=== PATIENT | female | born 1985 | race Caucasian/White ===

== ENCOUNTER 2020-05-18 14:56 | Outpatient (CLI) | payer OTHER ==
[2020-05-18] MEDS ORDERED: OMEGA-31000 MG PO (15:40)
[2020-05-18] MEDS ORDERED: FOLIC ACID20 MG PO (15:41)
== END 2020-05-18 16:38 | disposition home or self-care (01) ==
LOC: OBS/DEL 14:56
PROVIDERS: ATTEND Obstetrics & Gynecology Maternal & Fetal Medicine
DX: O46.8X2 Other antepartum hemorrhage, second trimester (principal)

== ENCOUNTER 2020-08-30 14:15 | Inpatient (IN) | payer OTHER ==
[~2020-08-30] VITALS: Ht 165.1 cm; Wt 72.6 kg
[~2020-08-30 14:15] MED LIST: FOLIC ACID20 MG PO; OMEGA-31000 MG PO
== END 2020-09-26 14:08 | disposition home or self-care (01) | DRG 807 ==
LOC: LDR 09-24 07:26 → SURG-SUITE 09-24 07:26 → LDR 09-24 14:15 → SURG-SUITE 09-24 18:52
PROVIDERS: ADMIT Obstetrics & Gynecology Maternal & Fetal Medicine; ATTEND Obstetrics & Gynecology Maternal & Fetal Medicine
PROC: 10E0XZZ Delivery of Products of Conception, External Approach (ICD-10-PCS; principal; 2020-09-24)
PROC: 10907ZC Drainage of Amniotic Fluid, Therapeutic from Products of Conception, Via Natural or Artificial Opening (ICD-10-PCS; 2020-09-24)
PROC: 0HQ9XZZ Repair Perineum Skin, External Approach (ICD-10-PCS; 2020-09-24)
PROC: 4A1HXFZ Monitoring of Products of Conception, Cardiac Rhythm, External Approach (ICD-10-PCS; 2020-09-24)
PROC: 3E033VJ Introduction of Other Hormone into Peripheral Vein, Percutaneous Approach (ICD-10-PCS; 2020-09-24)
DX: O70.0 First degree perineal laceration during delivery (principal); Z37.0 Single live birth; Z3A.40 40 weeks gestation of pregnancy; Z20.828 Contact with and (suspected) exposure to other viral communicable diseases

== ENCOUNTER 2020-09-16 11:44 | Outpatient (CLI) | payer OTHER | END 2020-09-16 12:38 | disposition home or self-care (01) | LOC: NST 11:44 | PROVIDERS: ATTEND Obstetrics & Gynecology Maternal & Fetal Medicine | DX: Z34.83 Encounter for supervision of other normal pregnancy, third trimester (principal) ==

== ENCOUNTER 2020-09-23 11:55 | Outpatient (CLI) | payer OTHER | END 2020-09-23 13:00 | disposition home or self-care (01) | LOC: NST 11:55 | PROVIDERS: ATTEND Obstetrics & Gynecology Maternal & Fetal Medicine | DX: Z34.83 Encounter for supervision of other normal pregnancy, third trimester (principal) ==

== ENCOUNTER → 2021-01-20 | Emergency (ER) | payer OTHER | END | disposition left against medical advice (07) | LOC: ER 04:36 | DX: Z53.20 Procedure and treatment not carried out because of patient's decision for unspecified reasons (principal) ==